=== PATIENT | female | born 1950 | race Caucasian/White ===

== ENCOUNTER 2021-11-28 08:45 | Day surgery (SDC) | payer MEDICARE, BC ==
[~2021-11-28 08:45] MED LIST: Lactated Ringers 1,000 ML IV SCH; Lidocaine 1% 4 ML ONE; Lidocaine 1%/Sod Bicarbonate in NS 8.4% 1 ML Syringe IDERM PRN; Propofol 200 MG/20 ML SDV ONE; Sodium Chloride 0.9% 10 ML Syringe FLUSH SCH
--- NOTE | 2021-11-28 10:04 | PCM.PREANE ---
Preanesthetic Assessment - Procedure Proposed Procedure: EGD/ colonoscopy - Anesthesia/Transfusion/Family Hx Anesthesia History: No Prior Anesthesia Family History of Anesthesia Reaction: No Transfusion History: Prior Transfusion Without Reaction Intubation History: Unknown - Review of Systems General: No Symptoms Pulmonary: No Symptoms Cardiovascular: No Symptoms, Other (HTN ) Gastrointestinal: No Symptoms Neurological: No Symptoms Other: Reports: Thyroid Problems - Physical Assessment NPO Status Date: 11/27/21 NPO Status Time: 04:00 Vital Signs: Last Vital Signs Temp 36.8 C 11/28/21 08:25 Pulse 72 11/28/21 08:25 Resp 18 11/28/21 08:25 BP 140/69 11/28/21 08:25 Pulse Ox 99 11/28/21 08:25 Height: 1.68 m Weight: 74 kg ASA Class: 2 Mental Status: Alert & Oriented x3 Airway Class: Mallampati = 3 Dentition: Reports: Normal Dentition Thyro-Mental Finger Breadths: 2 Mouth Opening Finger Breadths: 4 ROM/Head Extension: Full Lungs: Clear to Auscultation, Normal Respiratory Effort Cardiovascular: Regular Rate, Regular Rhythm - Allergies Allergies/Adverse Reactions: Allergies Allergy/AdvReac Type Severity Reaction Status Date / Time No Known Allergies Allergy Verified 11/28/21 09:22 - Blood Blood Available: No - Anesthesia Plan Pre-Op Medication Ordered: None - Acknowledgements Anesthesia Type Planned: MAC Pt an Appropriate Candidate for the Planned Anesthesia: Yes Alternatives and Risks of Anesthesia Discussed w Pt/Guardian: Yes Pt/Guardian Understands and Agrees with Anesthesia Plan: Yes PreAnesthesia Questionnaire HEENT History: Reports: Allergic Rhinitis, Other (See Below) Other HEENT History: post nasal drip Cardiovascular History: Reports: Hypertension, Other (See Below) Other Cardiovascular History: hyperlipidemia Gastrointestinal History: Reports: GERD Other Gastrointestinal History: gastric ulcer, abdominal pain Other Genitourinary History: post menopausal Endocrine/Metabolic History: Reports: Hypothyroidism Other Dermatologic History: skin tags, ganglion cyst - Past Surgical History Cardiovascular Surgical History: Reports: None GI Surgical History: Reports: None Female Surgical History: Reports: None Endocrine Surgical History: Reports: None Musculoskeletal Surgical History: Reports: None Oncologic Surgical History: Reports: None - SUBSTANCE USE Tobacco Use Status *Q: Never Tobacco User Second Hand Smoke Exposure: No Recreational Drug Use History: No - HOME MEDS Home Medications: Home Meds Cholecalciferol (Vitamin D3) [Vitamin D] 2,000 units PO DAILY 11/27/21 [History] L.acidoph,Paracasei, B.lactis [Probiotic] 1 cap PO DAILY 11/27/21 [History] Levothyroxine Sodium [Levothyroxine] 50 mcg PO DAILY 11/27/21 [History] Losartan Potassium [Cozaar] 50 mg PO DAILY 11/27/21 [History] Multivitamin 1 tab PO DAILY 11/27/21 [History] atorvaSTATin Calcium [Atorvastatin Calcium] 20 mg PO DAILY 11/27/21 [History] - CURRENT (IN HOUSE) MEDS Current Meds: Current Medications Lactated Ringer's (Ringers, Lactated) 1,000 mls @ 125 mls/hr IV ASDIRECTED [facility] Stop: 11/28/21 23:00 Last Admin: 11/28/21 08:45 Dose: 125 mls/hr Documented by: Lidocaine/Sodium Bicarbonate (Lidocaine 1%/Sod Bicarbonate In Ns 8.4% 1 Ml Syringe) 0.25 ml IDERM ONETIME PRN PRN Reason: Prior to IV Start Stop: 11/28/21 18:00 Sodium Chloride (Sodium Chloride 0.9% 10 Ml Syringe) 10 ml FLUSH 0900,2100 [facility] Stop: 11/28/21 18:00 Discontinued Medications Lidocaine HCl (Xylocaine-Mpf 1%) Confirm Administered Dose 8 mls @ as directed .ROUTE .STK-MED ONE Stop: 11/28/21 08:36 Propofol (Propofol 200 Mg/20 Ml Sdv) Confirm Administered Dose 600 mg .ROUTE .ST K-MED ONE Stop: 11/28/21 08:37 Propofol (Propofol 200 Mg/20 Ml Sdv) Confirm Administered Dose 200 mg .ROUTE .STK-MED ONE Stop: 11/28/21 08:38
[2021-11-28] MEDS ORDERED: Midazolam 1 MG/ML 2 ML SDV ONE (10:12)
[2021-11-28] MEDS ORDERED: Lactated Ringers 1,000 ML ONE (10:36)
--- NOTE | 2021-11-28 11:06 | PCM.PRNOTE ---
- Free Text/Narrative Note: Date: 11/28/2021 Procedure: diagnostic esophagogastroduodenoscopy and colonoscopy History: chronic GERD, positive cologuard, no history of polyps Endoscopist: Sky Anthony MD Findings: Cecum reached. Prep overall was okay but there was abundant bubbling in the proximal half of the colon making evaluation of fine mucosal detail impossible. Single small hyperplastic appearing polyp in the proximal rectum removed with cold forceps. No other pathology identified. Detailed Report: The patient was taken to the endoscopy suite and placed in left lateral decubitus position. A bite-block was placed, timeout was performed and monitored anesthesia care was initiated. The endoscope was inserted in the mouth and advanced to the duodenum with ease. On entry, there appeared to be some streaking erythema at the body of the stomach and minor inflammatory changes near the antrum and duodenal mucosa. Sample biopsy of mucosa from the duodenal bulb was obtained with cold forceps. The scope was drawn into the stomach. No ulcers or other lesions were identified aside from minor apparent inflammatory changes previously mentioned. A biopsy of antral mucosa was obtained as well as from the area of apparent inflammation at the mid body using cold forceps. On retroflexion, a sliding hiatal hernia was evident. The scope was withdrawn into the distal esophagus and the Z-line was visualized. 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 Biopsies at the Z-line and just proximal to this were obtained. Air was suctioned from the stomach prior to withdrawal of the scope. The remainder of the esophagus appeared relatively normal on withdrawal. Next, attention was turned to colonoscopy. The anus appeared patulous without evidence of external hemorrhoidal disease. Digital rectal exam was unremarkable. The colonoscope was inserted and advanced all the way to the cecum with ease. The appendiceal orifice and ileocecal junction were visualized. There was abundant bubbling associated with effluent which made excellent visualization of mucosal surfaces rather difficult. Time was taken to wash the surfaces with irrigation and rule out presence of polyps. The scope was slowly withdrawn and mucosal surfaces carefully inspected. At about the level of the mid transverse colon the issue with bubbles seem to genaro, and prep overall was pretty good for this part of the colon. No diverticulosis was appreciated. A small sessile polyp in the proximal rectum which appeared grossly consistent with a hyperplastic polyp was identified and removed with cold forceps. On retroflexion, minor internal hemorrhoidal disease was apprecia angelica. Air was suctioned from the distal colon and rectum prior to withdrawal of the scope. The patient tolerated the procedure well.
--- NOTE | 2021-11-28 11:11 | PCM48HPAN ---
Post Anesthesia Note - EVALUATION WITHIN 48HRS OF ANESTHETIC Vital Signs in Normal Range: Yes Patient Participated in Evaluation: Yes Respiratory Function Stable: Yes Airway Patent: Yes Cardiovascular Function Stable: Yes Hydration Status Stable: Yes Pain Control Satisfactory: Yes Nausea and Vomiting Control Satisfactory: Yes Mental Status Recovered: Yes Vital Signs: Last Vital Signs Temp 36.8 C 11/28/21 08:25 Pulse 72 11/28/21 08:25 Resp 18 11/28/21 08:25 BP 140/69 11/28/21 08:25 Pulse Ox 99 11/28/21 08:25
== END 2021-11-28 12:04 | disposition home or self-care (01) ==
LOC: JD.SDS 08:45
PROVIDERS: ATTEND Surgery
DX: K62.1 Rectal polyp (principal); K64.8 Other hemorrhoids; K25.9 Gastric ulcer, unspecified as acute or chronic, without hemorrhage or perforation; K21.00 Gastro-esophageal reflux disease with esophagitis, without bleeding; I10 Essential (primary) hypertension; E78.00 Pure hypercholesterolemia, unspecified; E03.9 Hypothyroidism, unspecified; Z79.899 Other long term (current) drug therapy; Z79.890 Hormone replacement therapy
CPT/HCPCS: 43239; 45380; J2250; J2704; J7120; 00813; 99100

== ENCOUNTER 2024-12-15 08:46 | Day surgery (SDC) | payer MEDICARE, BC ==
[2024-12-15] MEDS: Phenylephrine 2.5% Ophth Soln 2 ML Bot EYELF SCH (09:00)
[2024-12-15] MEDS: Polymyxin B/Trimethoprim 10 ML Bottle EYELF SCH (09:00)
[2024-12-15] MEDS: Brimonidine 0.2% Ophth Soln 5 ML Bottle EYELF SCH (09:01)
[2024-12-15] MEDS: Tetracaine HCl/PF 0.5% 4 ML Bottle EYEBOTH SCH (09:01)
[2024-12-15] MEDS: Lidocaine 1% PF 2 ML SDV INJECT SCH (09:01)
[2024-12-15] MEDS: Pilocarpine 4% Ophth Soln 15 ML Bot EYELF SCH (09:01)
[2024-12-15] MEDS: Cefuroxime 10 MG/ML SYRINGE EYELF SCH (09:02)
[2024-12-15] MEDS: Tropicamide 1% Ophth Soln 3 ML Bottle EYELF SCH (09:16)
== END 2024-12-15 11:09 | disposition home or self-care (01) ==
LOC: JD.SDS 08:46
PROVIDERS: ATTEND Ophthalmology
DX: H25.813 Combined forms of age-related cataract, bilateral (principal); I10 Essential (primary) hypertension; E78.2 Mixed hyperlipidemia; Z79.899 Other long term (current) drug therapy
CPT/HCPCS: 66984; A9270; J0697; J3490

== ENCOUNTER 2025-01-12 09:18 | Day surgery (SDC) | payer MEDICARE, BC ==
[2025-01-12] MEDS: Phenylephrine 2.5% Ophth Soln 2 ML Bot EYERT SCH (07:47)
[2025-01-12] MEDS: Cefuroxime 10 MG/ML SYRINGE EYERT SCH (07:48)
[2025-01-12] MEDS: Lidocaine 1% PF 2 ML SDV INJECT SCH (07:48)
[2025-01-12] MEDS: Tetracaine HCl/PF 0.5% 4 ML Bottle EYEBOTH SCH (07:48)
[2025-01-12] MEDS: Brimonidine 0.2% Ophth Soln 5 ML Bottle EYERT SCH (07:50)
[2025-01-12] MEDS: Polymyxin B/Trimethoprim 10 ML Bottle EYERT SCH (07:52)
[2025-01-12] MEDS: Pilocarpine 4% Ophth Soln 15 ML Bot EYERT SCH (07:52)
[2025-01-12] MEDS: Tropicamide 1% Ophth Soln 3 ML Bottle EYERT SCH (10:51)
== END 2025-01-12 12:05 ==
LOC: JD.SDS 09:18
PROVIDERS: ATTEND Ophthalmology
DX: H25.811 Combined forms of age-related cataract, right eye (principal); I10 Essential (primary) hypertension; E78.2 Mixed hyperlipidemia; Z96.1 Presence of intraocular lens; Z79.899 Other long term (current) drug therapy
CPT/HCPCS: A9270-GY; J0697; J3490